=== PATIENT | male | born 1950 | race Caucasian/White ===

== ENCOUNTER 2016-11-07 09:34 | Day surgery (SDC) | payer OTHER, BC ==
[2016-11-07] MEDS ORDERED: D5 LR 1000 ML 1,000 ML IV ONE ×2 (09:56→09:59)
[2016-11-07] MEDS ORDERED: DIPRIVAN VIAL 20 ML ONE (11:10)
[2016-11-07 11:40] VITALS: BP 111/76
== END 2016-11-07 11:43 | disposition home or self-care (01) ==
LOC: SURG1 09:34
PROVIDERS: ATTEND Internal Medicine Gastroenterology
PROC: 0DJD8ZZ Inspection of Lower Intestinal Tract, Via Natural or Artificial Opening Endoscopic (ICD-10-PCS; principal; 2016-11-07 12:45)
PROC: 0DBP8ZX Excision of Rectum, Via Natural or Artificial Opening Endoscopic, Diagnostic (ICD-10-PCS; principal; 2016-11-07 12:45)
DX: Z86.010 Personal history of colon polyps (principal); K63.5 Polyp of colon; K57.30 Diverticulosis of large intestine without perforation or abscess without bleeding; K64.0 First degree hemorrhoids; D12.8 Benign neoplasm of rectum
CPT/HCPCS: A4217; J3490; J7120

== ENCOUNTER 2018-09-18 21:58 | Inpatient (IN) ==
--- NOTE | 2018-09-18 22:39 | RAD ---
Chest PA and lateral Indication: Dyspnea and cough Comparison: No recent similar prior Findings: Heart size is within normal limits without pneumothorax or effusion. No consolidation seen. Monitoring leads obscure detail Impression: No acute chest process Reported By:
[2018-09-18] MEDS ORDERED: NS 1000 ML 1,000 ML IV ONE (22:42)
--- NOTE | 2018-09-18 22:43 | DR.URIAD ---
HPI Time Seen Time Seen by Provider: 09/18/18 22:12 PCP Primary Care Physician: /MERCEDES DARREN Complaint Chief Complaint Doctors Comments: Patient presented to the ED with complaint of constant cough not relieved by otc medication and prescription hydrocodone mixture. Chief Complaint:: NON PRODUCTIVE COUGH FOR THE LAST WEEK. SEEN . SEEN MERCEDES IN OFFICE TODAY WITH NO IMPROVEMENT, LOW BLOOD PRESSURE 70s/40s RECEIVED 2 LITERS OF IVFs. STARTED WITH A FEVER OF 103.6 TONIGHT. TOOK 2 NEB TREATMENTS AT HOME TODAY, AND TESSALON PEARLES. PATIENT ADMITS TO FEELING DIZZY, AND UNSTEADY. PATIENT ADMITS TO WEIGHT LOSS OF 10LBS OVER THE LAST WEEK. Self Treatment fo Chief Complaint: TESSALON PEARLES, NEB TREATMENT, COUGH MED. Source History Provided: Patient and Significant Other Mode of Arrival Mode of Arrival: Wheelchair Timing Onset of Chief Complaint: 09/11/18 Quality Shortness of Breath: none PMH PMH Past Medical History: Yes Past Medical History: Dyslipidemia, Hypertension and Hypothyroidism Past Surgical History: Yes Past Surgical History Comment: HERNIA REPAIR Family History History of Family Medical Conditions: No Social History Does patient currently use any type of tobacco product: No Have you used tobacco products in the last 12 months: No Type of Tobacco Use: None Does any household member use tobacco: No Alcohol Use: None Do you use any recreational Drugs:: No Lives With: Spouse Lives Where: Home infectious screening In the last 2 months have you had wt loss of >10#?: YES Have you had fever, night sweats or hemotysis?: No Have you traveled outside the country in the last 6 months?: No Isolation: Standard ROS Review of Systems Constitutional: Chills, Fever and Malaise Eyes: No Symptoms Reported ENTM: No Symptoms Reported Respiratoy: See HPI, Non-Productive Cough, Dry Cough and Hacking Cough Cardiovascular: No Symptoms Reported Gastrointestinal/Abdominal: No Symptoms Reported Genitourinary: No Symptoms Reported Neurological: No Symptoms Reported Musculoskeletal: No Symptoms Reported Integumentary: No Symptoms Reported Hematologic/Lymphatic: No Symptoms Reported Endocrine: No Symptoms Reported Psychiatric: No Symptoms Reported All Other Systems: Reviewed and Negative PE Vital Signs Vitals: Temperature 98.5 F Pulse Rate [Left Brachial] 114 Pulse Rate 82 Respiratory Rate 20 Blood Pressure [Right Arm] 120/79 Blood Pressure [Left Arm] 111/63 Blood Pressure 106/60 O2 Sat by Pulse Oximetry 94 General Limitations: No Limitations General Appearance: Alert and In No Apparent Distress Head Head Exam: Normal Inspection, Atraumatic and Normocephalic Eyes Eye exam: Normal Appearance, PERRL and EOMI ENT ENT Exam: Normal Exam, Normal Oropharynx and Normal External Ear Exam External Ear Exam: Normal External Inspection TM/Canal Exam: Bilateral: Normal Nose Exam: Normal Nose Exam Nasal Speculum Exam: Bilateral: Normal Mouth Exam: Normal Inspection and Drooling Throat Exam: Normal Inspection Neck Neck Exam: Normal Inspection and Full ROM Chest Chest Inspection: Normal Inspection and Symmetric Chest Wall Rise Respiratory Respiratory Exam: Normal Lung Sounds Bilat Respiratory Exam: Bilateral: Clear to Auscultation and Lower: Wheezing (left posterior lower lobe faint wheeze) Cardiovascular Cardiovascular Exam: Regular Rate and Normal Rhythm Abdominal Exam Abdominal Exam: Normal Inspection Extremeties Extremities Exam: Normal Inspection and Full ROM Back Back Exam: Normal Inspection and Full ROM Neurologic Neurological Exam: Alert, Oriented X3 and CN II-XII Intact Psychiatric Psychiatric Exam: Normal Affect and Normal Mood Skin Skin Exam: Warm, Dry and Intact MDM Differential Diagnosis Differential Diagnosis: Influenza A, Influenza B, Streptococcal pharyngitis and Viral pharyngitis COURSE Consultation Called: 00:15 Consultation Comments: Patient discussed with of this patient with hyponatremia and lymphadenopathy. He agreed to admit to the service of Dr. Sommers [facility] Labs Reviewed Laboratory Results Reviewed?: Yes Result Diagrams: 09/18/18 22:20 09/18/18 22:20 Laboratory: 09/19/18 02:25 Sputum - Expectorated Sputum - Final WBC 6.3 X10^3/uL (3.6-10.0) 09/18/18 22:20 RBC 4.66 X10^6/uL (4.7-6.0) L 09/18/18 22:20 Hgb 15.3 g/dL (13.5-18.0) 09/18/18 22:20 Hct 45.0 % (42.0-54.0) 09/18/18 22:20 MCV 96.5 fL (80.0-100.0) 09/18/18 22:20 MCH 32.8 pg (27.0-34.0) 09/18/18 22:20 MCHC 34.0 g/dL (33.0-35.0) 09/18/18 22:20 RDW 14.6 % (11.6-16.5) 09/18/18 22:20 Plt Count 90 X10^3/uL (150.0-450.0) L 09/18/18 22:20 MPV 8.5 fL (7.4-11.0) 09/18/18 22:20 Neut % (Auto) 83.5 % (42.0-75.0) H 09/18/18 22:20 Lymph % (Auto) 7.5 % (21.0-51.0) L 09/18/18 22:20 [place] % (Auto) 8.5 % (0.0-13.0) 09/18/18 22:20 Eos % (Auto) 0.2 % (0.9-2.9) L 09/18/18 22:20 Baso % (Auto) 0.3 % (0.2-1.0) 09/18/18 22:20 Neut # (Auto) 5.2 x10^3/uL (2.2-4.8) H 09/18/18 22:20 Lymph # (Auto) 0.5 X10^3/uL (1.3-2.9) L 09/18/18 22:20 [place] # (Auto) 0.5 x10^3/uL (0.3-0.8) 09/18/18 22:20 Eos # (Auto) 0.0 x10^3/uL (0.0-0.2) 09/18/18 22:20 Baso # (Auto) 0.0 X10^3/uL (0.0-0.1) 09/18/18 22:20 Absolute Nucleated RBC 0.1 /100WBC 09/18/18 22:20 D-Dimer 915 ng/mL (0-400) H* 09/18/18 22:20 Sodium 128 mmol/L (136-145) L 09/18/18 22:20 Corrected Sodium 129 mmol/L (136-145) L 09/18/18 22:20 Potassium 4.0 mmol/L (3.5-5.1) 09/18/18 22:20 Chloride 96 mmol/L (98-107) L 09/18/18 22:20 Carbon Dioxide 20.7 mmol/L (21-32) L 09/18/18 22:20 BUN 19 mg/dL (7-18) H 09/18/18 22:20 Creatinine 1.51 mg/dL (0.70-1.30) H 09/18/18 22:20 Est GFR (MDRD) Af Amer 59 (>60) 09/18/18 22:20 Est GFR (MDRD) Non-Af 49 (>60) L 09/18/18 22:20 Glucose 141 mg/dL (65-99) H 09/18/18 22:20 Hemoglobin A1c 6.2 % 09/19/18 03:00 Lactic Acid 1.8 mmol/L (0.4-2.0) 09/18/18 22:20 Calcium 8.2 mg/dL (8.5-10.1) L 09/18/18 22:20 Corrected Calcium 8.8 mg/dL (8.5-10.1) 09/18/18 22:20 Total Bilirubin 0.50 mg/dL (0.2-1.0) 09/18/18 22:20 AST 40 Units/L (15-37) H 09/18/18 22:20 ALT 37 Units/L (12-78) 09/18/18 22:20 Alkaline Phosphatase 49 Units/L (46-116) 09/18/18 22:20 C-Reactive Protein 72.90 mg/L (0-3.0) H 09/18/18 22:20 Total Protein 6.9 g/dL (6.4-8.2) 09/18/18 22:20 Albumin 3.2 g/dL (3.4-5.0) L 09/18/18 22:20 Globulin 3.7 g/dL (2.5-4.5) 09/18/18 22:20 Albumin/Globulin Ratio 0.9 Ratio (1.1-2.1) L 09/18/18 22:20 Influenza Type A (PCR) Negative (NEGATIVE) 09/18/18 23:16 Influenza Type B (PCR) Negative (NEGATIVE) 09/18/18 23:16 Other Results Comments: Chest PA/Lat: Findings: Heart size is within normal limits without pneumothorax or effusion. No consolidation seen Monitoring leads obscure detain.Impression: No acute chest process. CTA: No central or segmental pulmonary arterial filling defect is identified. There is normal caliber of the pulmonary artery without CT evidence or right hear strain. The thyroid gland is normal. Heart size is normal, without pericardial effusion. Borderline enlarged right pericardial phrenic lymph nodes are noted. Shotty lower paratracheal and percarinal lymph nodes. There is mildly enlarged right hilar lymp nodes. The thoracic aorta is normal in caliber and configuration with scattered calcified atherosclerotic disease. The lungs are clear. No pleural effusion or pneumothorax. Visualized upper abdomen and osseous structures are without acute abnormality. Impression:No PTE identified. No acute cardiopulmonary abnormality. Mildenlarged right pericardial hrenic, right hilar and shotty paratracheal and precarinal lymph nodes. Mildly enlarged bilateral axillary lymph nodes are also noted. Findings may represent a systemic infectious/inflammatory process with reactive lymph nodes; however underlying malignancy or lymphoproliferative process would need to be excluded on clinical basis. XRAY XRAY Interpreted by: Radiologist ADDITIONAL NOTES Additional Notes Additional Notes: Patient admitted
[2018-09-18 22:50] LABS: BASOPHILS % (AUTO) 0.3 % (0.2-1.0); EOSINOPHILS % (AUTO) 0.2 % (0.9-2.9); HEMOGLOBIN 15.3 g/dL (13.5-18.0); LYMPHOCYTES # (AUTO) 0.5 X10^3/uL (1.3-2.9); LYMPHOCYTES % (AUTO) 7.5 % (21.0-51.0); MEAN CORPUSCULAR HEMOGLOBIN 32.8 pg (27.0-34.0); MEAN CORPUSCULAR VOLUME 96.5 fL (80.0-100.0); MEAN PLATELET VOLUME 8.5 fL (7.4-11.0); MONOCYTES # (AUTO) 0.5 x10^3/uL (0.3-0.8); MONOCYTES % (AUTO) 8.5 % (0.0-13.0); NEUTROPHILS # (AUTO) 5.2 x10^3/uL (2.2-4.8); NEUTROPHILS % (AUTO) 83.5 % (42.0-75.0); PLATELET COUNT 90 X10^3/uL (150.0-450.0); RED BLOOD COUNT 4.66 X10^6/uL (4.7-6.0); RED CELL DISTRIBUTION WIDTH 14.6 % (11.6-16.5); WHITE BLOOD COUNT 6.3 X10^3/uL (3.6-10.0)
[2018-09-18 22:57] LABS: ALBUMIN 3.2 g/dL (3.4-5.0); CALCIUM 8.2 mg/dL (8.5-10.1); CARBON DIOXIDE 20.7 mmol/L (21-32); COR CA(FOR HYPOALB) 8.8 mg/dL (8.5-10.1); CREATININE 1.51 mg/dL (0.70-1.30); TOTAL PROTEIN 6.9 g/dL (6.4-8.2)
[2018-09-18] MEDS ORDERED: NS 1000 ML 1,000 ML ONE (23:10)
[2018-09-18] MEDS ORDERED: PHENERGAN W/CODEINE 6.25MG/10MG PO ONE (23:36)
[2018-09-18] MEDS ORDERED: PHENERGAN W/CODEINE 6.25MG/10MG ONE (23:37)
[2018-09-18] MEDS ORDERED: NS 100 ML IV 100 ML ONE (23:45)
--- NOTE | 2018-09-19 01:08 | CT ---
CTA chest with contrast per pulmonary embolism protocol Indication: Coughing, fever and elevated D-dimer Comparison: None available Technique: Multiple axial images of the chest were obtained from the thoracic inlet to the upper abdomen after the administration of IV contrast.Coronal and Sagittal MIP images were also provided. Findings: No central or segmental pulmonary arterial filling defect is identified. There is normal caliber of the pulmonary artery without CT evidence or right heart strain. The thyroid gland is normal. Heart size is normal without pericardial effusion. Borderline enlarged right pericardial phrenic lymph nodes are noted. Shotty lower paratracheal and precarinal lymph nodes. There is mildly enlarged right hilar lymph nodes. The thoracic aorta is normal in caliber and configuration with scattered calcified atherosclerotic disease. The lungs are clear. No pleural effusion or pneumothorax. Visualized upper abdomen and osseous structures are without acute abnormality. IMPRESSION: 1. No PTE identified. 2. No acute cardiopulmonary abnormality. 3. Mildly enlarged right pericardial phrenic, right hilar and shotty paratracheal and subcarinal lymph nodes. Mildly enlarged bilateral axillary lymph nodes are also noted. Findings may represent a systemic infectious/inflammatory process with reactive lymph nodes; however underlying malignancy or lymphoproliferative process would need to be excluded on clinical basis. Reported By:
[2018-09-19] MEDS ORDERED: SALINE 3% 15 ML NEB TX ONE (01:47)
[2018-09-19] MEDS ORDERED: SALINE 3% 15 ML NEB TX NEB ONE (01:50)
[2018-09-19] MEDS ORDERED: NS 1000 ML 1,000 ML ONE (02:55)
[2018-09-19] MEDS: NS 1000 ML 1,000 ML IV SCH ×5 (03:25→20:49)
[2018-09-19] MEDS ORDERED: ZOFRAN INJ 4 MG VIAL IVP PRN (03:26)
[2018-09-19] MEDS ORDERED: ROBITUSSIN DM ONE (03:29)
[2018-09-19] MEDS ORDERED: ZOFRAN INJ 4 MG VIAL ONE (03:29)
[2018-09-19 03:52] VITALS: BMI 23.8
[2018-09-19 05:28] LABS: BASOPHILS % (AUTO) 0.4 % (0.2-1.0); EOSINOPHILS % (AUTO) 0.1 % (0.9-2.9); HEMATOCRIT 40.6 % (42.0-54.0); HEMOGLOBIN 13.9 g/dL (13.5-18.0); LYMPHOCYTES # (AUTO) 0.7 X10^3/uL (1.3-2.9); MEAN CORPUSCULAR HEMOGLOBIN 32.8 pg (27.0-34.0); MEAN CORPUSCULAR HGB CONC 34.1 g/dL (33.0-35.0); MEAN PLATELET VOLUME 8.2 fL (7.4-11.0); MONOCYTES # (AUTO) 0.4 x10^3/uL (0.3-0.8); MONOCYTES % (AUTO) 9.4 % (0.0-13.0); NEUTROPHILS # (AUTO) 3.6 x10^3/uL (2.2-4.8); NEUTROPHILS % (AUTO) 76.1 % (42.0-75.0); PLATELET COUNT 76 X10^3/uL (150.0-450.0); RED BLOOD COUNT 4.23 X10^6/uL (4.7-6.0); RED CELL DISTRIBUTION WIDTH 14.2 % (11.6-16.5); WHITE BLOOD COUNT 4.7 X10^3/uL (3.6-10.0)
[2018-09-19 05:40] LABS: ALANINE AMINOTRANSFERASE 32 Units/L (12-78); ALBUMIN 2.6 g/dL (3.4-5.0); ALKALINE PHOSPHATASE 38 Units/L (46-116); ASPARTATE AMINO TRANSFERASE 37 Units/L (15-37); BLOOD UREA NITROGEN 15 mg/dL (7-18); CALCIUM 7.6 mg/dL (8.5-10.1); CARBON DIOXIDE 21.3 mmol/L (21-32); CHLORIDE 100 mmol/L (98-107); COR CA(FOR HYPOALB) 8.7 mg/dL (8.5-10.1); CREATININE 1.22 mg/dL (0.70-1.30); SODIUM 130 mmol/L (136-145); TOTAL PROTEIN 5.7 g/dL (6.4-8.2); eGFR NON BLACK RACES > 60 (>60)
[2018-09-19] MEDS: PROVENTIL NEB TX 0.083% 2.5MG/ 3ML NEB SCH ×3 (06:22→21:26)
[2018-09-19] MEDS: SYNTHROID 125 mcg TAB PO SCH (06:28)
[2018-09-19] MEDS: ROBITUSSIN DM PO PRN ×2 (07:32→18:20)
[2018-09-19] MEDS ORDERED: ZESTRIL TAB 20 MG ONE (08:34)
[2018-09-19] MEDS: ASPIRIN 81 MG CHEWTAB PO SCH (08:38)
[2018-09-19] MEDS: PROSCAR PO SCH ×2 (08:38→08:39)
[2018-09-19] MEDS: ZESTRIL TAB 20 MG PO SCH ×2 (08:38→08:40)
[2018-09-19] MEDS ORDERED: ROCEPHIN VIAL 2 GRAMS ONE (12:38)
[2018-09-19] MEDS ORDERED: ASTELIN NASAL SPRAY ONE (12:38)
[2018-09-19] MEDS: TESSALON PERLES PO PRN ×2 (12:46→21:00)
[2018-09-19] MEDS: FLONASE NASAL SPRAY ENOSTRIL SCH (12:47)
[2018-09-19] MEDS: ASTELIN NASAL SPRAY ENOSTRIL SCH ×3 (12:47→21:00)
[2018-09-19] MEDS: ROCEPHIN VIAL 2 GRAMS IVP SCH (12:48)
--- NOTE | 2018-09-19 17:19 | CT ---
Exam: CT of the paranasal sinuses without contrast History: 68-year-old male with cough and congestion. Comparison: None Technique: Axial imaging was performed through the level of the paranasal sinuses without administering intravenous contrast. Sagittal and coronal reformations were generated. Automated exposure control techniques were used for this exam. Findings: The frontal, ethmoid, maxillary, and sphenoid sinuses are all well aerated with no mucosal thickening or air-fluid levels to suggest the presence of sinusitis. Bony structures are normal as well. Bony nasal septum is midline. Visualized aspect of the paranasal sinuses are clear. Impression: Unremarkable CT of the paranasal sinuses with no findings to suggest sinusitis Reported By:
[2018-09-19 17:26] LABS: BILIRUBIN,URINE NEGATIVE (NEGATIVE); BLOOD/HEMOGLOBIN,URINE 1+ (NEGATIVE); GLUCOSE, URINE NEGATIVE (NEGATIVE); KETONES,URINE NEGATIVE (NEGATIVE); LEUKOCYTE ESTERASE ,URINE NEGATIVE (NEGATIVE); NITRITES,URINE NEGATIVE (NEGATIVE); PROTEIN,URINE 1+ (NEGATIVE); UROBILINOGEN,URINE 1+ (NORMAL)
[2018-09-19 18:11] LABS: APPEARANCE,URINE CLEAR (CLEAR); COLOR,URINE YELLOW (YELLOW)
[2018-09-19 18:15] LABS: RBC,URINE 0-2 /HPF (NONE SEEN)
[2018-09-19 18:16] LABS: AMORPHOUS SEDIMENT,UR TRACE /HPF (NEGATIVE); BACTERIA,URINE NEGATIVE /HPF (NEGATIVE); SQUAMOUS EPITHELIAL CELL,UR RARE /HPF (NEGATIVE)
[2018-09-19] MEDS ORDERED: ZOCOR TAB 20 MG PO SCH (21:00)
[2018-09-20] MEDS: NS 1000 ML 1,000 ML IV SCH ×2 (02:39→11:03)
[2018-09-20 05:44] LABS: BASOPHILS % (AUTO) 0.4 % (0.2-1.0); EOSINOPHILS % (AUTO) 0.1 % (0.9-2.9); HEMATOCRIT 40.4 % (42.0-54.0); HEMOGLOBIN 13.9 g/dL (13.5-18.0); LYMPHOCYTES # (AUTO) 0.7 X10^3/uL (1.3-2.9); LYMPHOCYTES % (AUTO) 16.1 % (21.0-51.0); MEAN CORPUSCULAR HGB CONC 34.4 g/dL (33.0-35.0); MEAN CORPUSCULAR VOLUME 95.9 fL (80.0-100.0); MEAN PLATELET VOLUME 8.6 fL (7.4-11.0); MONOCYTES # (AUTO) 0.4 x10^3/uL (0.3-0.8); MONOCYTES % (AUTO) 10.2 % (0.0-13.0); NEUTROPHILS # (AUTO) 3.2 x10^3/uL (2.2-4.8); NEUTROPHILS % (AUTO) 73.2 % (42.0-75.0); PLATELET COUNT 71 X10^3/uL (150.0-450.0); RED BLOOD COUNT 4.21 X10^6/uL (4.7-6.0); RED CELL DISTRIBUTION WIDTH 14.1 % (11.6-16.5); WHITE BLOOD COUNT 4.4 X10^3/uL (3.6-10.0)
[2018-09-20] MEDS: PROVENTIL NEB TX 0.083% 2.5MG/ 3ML NEB SCH (05:50)
[2018-09-20 05:52] LABS: ALANINE AMINOTRANSFERASE 48 Units/L (12-78); ALBUMIN 2.5 g/dL (3.4-5.0); ALKALINE PHOSPHATASE 39 Units/L (46-116); ASPARTATE AMINO TRANSFERASE 63 Units/L (15-37); BLOOD UREA NITROGEN 10 mg/dL (7-18); CALCIUM 7.5 mg/dL (8.5-10.1); CARBON DIOXIDE 21.7 mmol/L (21-32); CHLORIDE 100 mmol/L (98-107); COR CA(FOR HYPOALB) 8.7 mg/dL (8.5-10.1); COR NA(FOR HYPERGLY) 133 mmol/L (136-145); CREATININE 1.17 mg/dL (0.70-1.30); SODIUM 132 mmol/L (136-145); TOTAL PROTEIN 5.6 g/dL (6.4-8.2); eGFR NON BLACK RACES > 60 (>60)
[2018-09-20] MEDS: SYNTHROID 125 mcg TAB PO SCH (06:04)
[2018-09-20] MEDS: ASTELIN NASAL SPRAY ENOSTRIL SCH (06:24)
[2018-09-20] MEDS ORDERED: ZESTRIL TAB 20 MG ONE (07:23)
[2018-09-20] MEDS: ASPIRIN 81 MG CHEWTAB PO SCH (08:18)
[2018-09-20] MEDS: FLONASE NASAL SPRAY ENOSTRIL SCH (08:19)
[2018-09-20] MEDS: ZESTRIL TAB 20 MG PO SCH (08:19)
[2018-09-20] MEDS: ROCEPHIN VIAL 2 GRAMS IVP SCH (08:20)
[2018-09-20] MEDS: PROSCAR PO SCH (08:20)
[2018-09-20 08:57] VITALS: BP 108/62
== END 2018-09-20 11:25 | disposition home or self-care (01) | DRG 864 ==
LOC: ER 21:58 → MED/SURG 21:58
PROVIDERS: ADMIT Obstetrics & Gynecology Obstetrics; ATTEND Internal Medicine
DX: J30.9 Allergic rhinitis, unspecified; E87.1 Hypo-osmolality and hyponatremia; I95.89 Other hypotension; R59.1 Generalized enlarged lymph nodes; R50.9 Fever, unspecified
CPT/HCPCS: 36415; 70486; 71020; 71046; 71275; 80053; 81001; 83036; 83605; 85025; 85378; 86140; 87040; 87070; 87205; 87502; 94640; 94760; A4216; A4222; S0138; G0378; J0696; J2405; J7030; J7050; J7613